=== PATIENT | male | born 1950 | race Caucasian/White ===

== ENCOUNTER → 2020-04-02 | Outpatient (CLI) | payer MEDICARE | END | disposition home or self-care (01) | LOC: RAH 10:29 | PROVIDERS: ATTEND Neurological Surgery | DX: S12.100D Unspecified displaced fracture of second cervical vertebra, subsequent encounter for fracture with routine healing (principal); S12.110D Anterior displaced Type II dens fracture, subsequent encounter for fracture with routine healing; M50.30 Other cervical disc degeneration, unspecified cervical region; X58.XXXD Exposure to other specified factors, subsequent encounter ==

== ENCOUNTER 2023-01-29 09:50 | Observation (INO) | payer MEDICARE, OTHER ==
[~2023-01-29] VITALS: Ht 175.3 cm; Wt 60.8 kg
[2023-01-29] MEDS ORDERED: KETOROLAC 30MG VIAL (30MG/ML) IVP ONE (10:00)
[2023-01-29 10:18] LABS: BASOPHILS % (AUTO) 0.3 % (0.0-5.0); HEMATOCRIT 39.3 % (42-54); LYMPHOCYTES % (AUTO) 15.3 % (21.0-51.0); MEAN CORPUSCULAR HGB CONC 34.6 g/dL (32.0-36.0); MEAN CORPUSCULAR VOLUME 92.5 fL (79-99); MONOCYTES % (AUTO) 6.5 % (3.0-13.0); NEUTROPHILS % (AUTO) 76.2 % (40.0-77.0); PLATELET COUNT (AUTO) 280 K/uL (130-400); RED BLOOD CELL COUNT(AUTO) 4.25 MIL/uL (4.50-6.20); RED CELL DISTRIBUTION WIDTH 13.2 % (11.0-15.5); WHITE BLOOD COUNT (AUTO) 13.6 K/uL (4.8-10.8)
[2023-01-29 10:35] LABS: CREATININE 1.3 mg/dL (0.5-1.5); POTASSIUM 3.1 mmol/L (3.5-5.1); TOTAL PROTEIN, SERUM 5.7 g/dL (6.0-8.3)
[2023-01-29] MEDS ORDERED: POTASSIUM CHLORIDE 10% ELIXIR 20 MEQ/15 ML UDCUP PO ONE (11:00)
[2023-01-29] MEDS ORDERED: CEFTRIAXONE 1G VIAL IVPB SCH (12:30)
[2023-01-29] MEDS: DEXTROSE 5 %-0.45 % NACL 1,000 ML IV SCH (14:29)
[2023-01-29] MEDS ORDERED: HYDR-4068 PO (18:57)
[2023-01-29] MEDS ORDERED: CITA10TA89 PO (18:57)
[2023-01-29] MEDS ORDERED: ZOLP10TA2 PO (18:57)
[2023-01-29] MEDS ORDERED: TIZA-211 PO (18:57)
[2023-01-29] MEDS ORDERED: LORA0.5T83 PO (18:57)
[2023-01-29] MEDS ORDERED: VALS160T29 PO (18:58)
[2023-01-29 21:10] VITALS: BP 192/72
[2023-01-29 21:35] LABS: APPEARANCE,URINE CLEAR (CLEAR); BILIRUBIN,URINE NEGATIVE (NEGATIVE); COLOR,URINE YELLOW (YELLOW); GLUCOSE, URINE (UA) NEGATIVE (NEGATIVE); KETONES,URINE NEGATIVE (NEGATIVE); LEUKOCYTE ESTERASE ,URINE NEGATIVE Leu/uL (NEGATIVE); NITRATE,URINE NEGATIVE (NEGATIVE); OCCULT BLOOD,URINE NEGATIVE (NEGATIVE); PROTEIN,URINE 30 mg/dL (NEGATIVE); UROBILINOGEN,URINE 0.2 mg/dL (0.2-1.0)
[2023-01-29 21:38] LABS: BACTERIA,URINE RARE /HPF (None Seen); MUCUS,URINE RARE LPF (None Seen); RBC,URINE 0-1 /HPF (0-1); YEAST,URINE BUDDING RARE /HPF (None Seen)
[2023-01-29] MEDS ORDERED: HYDROCODONE/ACETAMINOPHEN 10/325 MG TAB PO PRN (22:00)
[2023-01-29] MEDS ORDERED: MORPHINE 4 MG SYG IM PRN (22:00)
[2023-01-29] MEDS ORDERED: LORAZEPAM 0.5 MG TABLET PO PRN ×2 (22:00→22:30)
[2023-01-29] MEDS ORDERED: MORPHINE 4 MG SYG ONE (22:17)
[2023-01-29] MEDS ORDERED: PHARMACY COMMUNICATION MISC SCH (22:30)
[2023-01-29] MEDS ORDERED: TIZANIDINE HCL 2 MG TABLET PO PRN (23:00)
[2023-01-29] MEDS ORDERED: ZOLPIDEM TARTRATE 5 MG TAB PO PRN (23:00)
[2023-01-29 23:44] VITALS: BP 161/65
[2023-01-30] MEDS: DEXTROSE 5 %-0.45 % NACL 1,000 ML IV SCH ×2 (01:02→05:14)
[2023-01-30 03:40] VITALS: BP 164/85
[2023-01-30] MEDS ORDERED: MORPHINE 4 MG SYG IVP PRN (04:00)
[2023-01-30 04:38] VITALS: BP 136/69
[2023-01-30 05:45] LABS: BASOPHILS % (AUTO) 0.2 % (0.0-5.0); EOSINOPHILS % (AUTO) 1.4 % (0.0-8.0); HEMATOCRIT 36.6 % (42-54); MEAN CORPUSCULAR HEMOGLOBIN 32.1 pg (27.0-33.0); MEAN CORPUSCULAR HGB CONC 34.2 g/dL (32.0-36.0); MEAN CORPUSCULAR VOLUME 93.8 fL (79-99); MONOCYTES % (AUTO) 8.1 % (3.0-13.0); NEUTROPHILS % (AUTO) 66.7 % (40.0-77.0); PLATELET COUNT (AUTO) 248 K/uL (130-400); RED CELL DISTRIBUTION WIDTH 13.2 % (11.0-15.5); WHITE BLOOD COUNT (AUTO) 12.7 K/uL (4.8-10.8)
[2023-01-30 06:05] LABS: ALBUMIN 2.6 g/dL (3.5-5.0); CREATININE 1.2 mg/dL (0.5-1.5); POTASSIUM 3.4 mmol/L (3.5-5.1); TOTAL PROTEIN, SERUM 5.5 g/dL (6.0-8.3)
[2023-01-30 08:00] VITALS: BP 141/75
[2023-01-30] MEDS ORDERED: LOSARTAN 100 MG TABLET PO SCH (09:00)
[2023-01-30] MEDS ORDERED: CITALOPRAM 20 MG TABLET PO SCH (09:00)
== END 2023-01-30 12:10 | disposition home or self-care (01) ==
LOC: EDH 09:50 → EDHIP 12:27 → 3AH 20:54
PROVIDERS: ADMIT Internal Medicine; ATTEND Internal Medicine
DX: S50.01XA Contusion of right elbow, initial encounter (principal); S70.01XA Contusion of right hip, initial encounter; S20.219A Contusion of unspecified front wall of thorax, initial encounter; D72.829 Elevated white blood cell count, unspecified; I10 Essential (primary) hypertension; M19.90 Unspecified osteoarthritis, unspecified site; W19.XXXA Unspecified fall, initial encounter; Y93.89 Activity, other specified; Y92.89 Other specified places as the place of occurrence of the external cause; Z79.899 Other long term (current) drug therapy
CPT/HCPCS: 96365; 96366; 96375; 99285; 84484; 80053 ×2; 85025 ×2; 87040 ×2; 87088; 81001; 36415 ×2; 73070; 73502; 71101; 72192; 93005; 96361; G0378 ×23; J7042; J0696; J2270; J1885

== ENCOUNTER → 2024-11-01 | Outpatient (CLI) | payer OTHER ==
[~2024-11-01] MED LIST: CITA10TA89 PO; HYDR-4068 PO; LORA0.5T83 PO; TIZA-211 PO; VALS160T29 PO; ZOLP10TA2 PO
--- NOTE | 2024-11-01 13:50 | HMCIMG ---
CT calcium scoring Clinical Information: [facility] SCREENING Comparison: None CT Dose Index (CTDI): 13.30 mGy Dose Length Product (DLP): 186.18 total mGy-cm Findings: Calcium score 1017.6. Significant calcification. The CT scan is not a complete chest CT. Covered portion is reviewed for incidental findings. No incidental findings seen. IMPRESSION: Calcium score as above. Calcium score reference stable: 0: No identifiable calcification 1- 10: Minimal identifiable calcification 11-100: Mild calcification 101- 400: Moderate calcification 401 and above: Significant calcification Automated exposure control and adequate statistical iterative reconstructions were utilized as dose reduction techniques.
== END | disposition home or self-care (01) ==
LOC: RAH 13:17
PROVIDERS: ATTEND Internal Medicine Cardiovascular Disease
DX: Z13.6 Encounter for screening for cardiovascular disorders (principal); F17.210 Nicotine dependence, cigarettes, uncomplicated
CPT/HCPCS: 75571